=== PATIENT | female | born 1940 | race Caucasian/White ===

== ENCOUNTER 2021-01-04 12:01 | Emergency (ER) | payer MEDICARE ==
[~2021-01-04] VITALS: Ht 152.4 cm; Wt 56.2 kg
[~2021-01-04 12:01] MED LIST: ASPI-496 PO; CETI10CA11; GLIM4TAB8; GLIM4TAB8 PO; IBUP-1623; METF500T17; METF500T17 PO; SIMV40TA20 PO
[2021-01-04 12:38] LABS: BASOPHILS % (AUTO) 1 % (0-1); EOSINOPHILS % (AUTO) 1 % (1-7); LYMPHOCYTES % (AUTO) 31 % (22-44); MEAN CORPUSCULAR HEMOGLOBIN 29.5 pg (27.0-34.8); MEAN CORPUSCULAR HGB CONC 33.7 g/dL (32.4-35.8); MEAN PLATELET VOLUME 9.2 fL (7.4-10.4); MONOCYTES % (AUTO) 6 % (2-9); NEUTROPHILS % (AUTO) 62 % (42-75); PLATELET COUNT 262 x10^3/uL (130-400); RED BLOOD COUNT 4.49 x10^6/uL (3.82-5.3); RED CELL DISTRIBUTION WIDTH 14.2 % (9.6-15.2)
[2021-01-04 12:45] LABS: ALANINE AMINOTRANSFERASE 22 U/L (12-78); ALBUMIN 4.2 g/dL (3.4-5.0); CALCIUM 9.3 mg/dL (8.5-10.1); CHLORIDE 101 mmol/L (98-107); CREATININE 0.77 mg/dL (0.55-1.02)
--- NOTE | 2021-01-04 12:45 | NUR ---
PATIENT AMBULATED TO BATHROOM WITH STEADY GAIT.
[2021-01-04 12:47] LABS: ALKALINE PHOSPHATASE 75 U/L (45-117); BILIRUBIN,TOTAL 0.3 mg/dL (0.2-1.0); TOTAL PROTEIN 8.2 g/dL (6.4-8.2)
[2021-01-04 12:58] LABS: ANION GAP 6 mmol/L (5-15)
--- NOTE | 2021-01-04 13:09 | NUR ---
PT AMBULATORY TO ROOM 18 W/ C/O GIB THROUGH ANUSE BRIGHT RED STARTED LAST NIGHT. PT ASO HAS C/O ABD PAIN RUQ ABD PAIN STARTED 3 DAYS AGO. PT ALSO HAS C/O SWELLING TO BILAT FEET AFTER AMBULATING. PT ALSO HAS C/O SORE THROAT. PT RESTING ON GURNEY. NADN. MONITORS APPLIED. VSS.
[2021-01-04] MEDS ORDERED: KETOROLAC 30 MG/1 ML ONE (13:58)
[2021-01-04] MEDS ORDERED: MORPHINE SULFATE 4 MG/ML, 1ML ONE (13:58)
[2021-01-04 14:00] LABS: MICROSCOPIC INDICATED
[2021-01-04] MEDS ORDERED: KETOROLAC 30 MG/1 ML IVPush ONE (14:00)
[2021-01-04] MEDS ORDERED: MORPHINE SULFATE 4 MG/ML, 1ML IVPush PRN (14:00)
--- NOTE | 2021-01-04 14:17 | NUR ---
PT BACK FROM CT. PT MEDICATED PER AUG. PT RESTING ON [facility]. ZAIRE. S.
--- NOTE | 2021-01-04 14:42 | NUR ---
PT CHART REVIEWED AND PLACED FOR RECHECK.
[2021-01-04 15:13] VITALS: BP 124/59
--- NOTE | 2021-01-04 15:13 | NUR ---
PT RESTING ON GURNEY. NADN. DUTTA.
== END 2021-01-04 16:09 | disposition home or self-care (01) ==
LOC: ED 16:00
DX: K92.2 Gastrointestinal hemorrhage, unspecified (principal); K64.8 Other hemorrhoids; E11.9 Type 2 diabetes mellitus without complications; E78.00 Pure hypercholesterolemia, unspecified; Z88.0 Allergy status to penicillin
CPT/HCPCS: 36415; 74176; 80053; 81001; 85025; 87086; 96374; 96375; 99284; J1885; J2270